=== PATIENT | male | born 1985 | race Caucasian/White ===

== ENCOUNTER 2025-02-03 21:52 | Emergency (ER) | payer MEDICAID ==
[~2025-02-03] VITALS: Ht 182.9 cm; Wt 91.5 kg
[2025-02-03 22:07] VITALS: BP 131/89; PULSE 76; RESP 16; O2SAT 98
--- NOTE | 2025-02-04 00:02 | RADIOLOGY REPORT ---
Clinical History head trauma Comparison None Technique: All CT scans at this medical facility are performed using dose modulation techniques as appropriate t o a performed exam including the following: Automated exposure control was utilized; adjustment of th e mA and/or kV according to patient size; and use of iterative reconstruction technique. All CT studies are reported to the Dose Index Registry of the [employer]. Without Contrast Radiation Dose: CTDI (mGy): 58.40; DLP (mGy-cm): 1072.52 RIC NAJERA, [id number] Findings: No focal parenchymal lesion.No mass-effect. No shift of midline structures. The ventricular system a nd extracerebral CSF spaces are unremarkable for patient's age. No acute orbital abnormality. The imaged part of the paranasal sinuses is unremarkable.The imaged par t of the mastoid air cells is unremarkable. The calvarium is unremarkable. The soft tissues are unremarkable. Impression: No evidence of acute intracranial abnormality. This report was electronically signed by Skye Landis MD on 02/03/2025 11:58:40 PM.
--- NOTE | 2025-02-04 00:04 | RADIOLOGY REPORT ---
Clinical History head trauma Comparison None Technique: All CT scans at this medical facility are performed using dose modulation techniques as appropriate t o a performed exam including the following: Automated exposure control was utilized; adjustment of th e mA and/or kV according to patient size; and use of iterative reconstruction technique. All CT studies are reported to the Dose Index Registry of the [employer]. Without Contrast Radiation Dose: CTDI (mGy): 17.49; DLP (mGy-cm): 388.73 RIC NAJERA, [id number] FINDINGS: Cervical vertebral body height is maintained. Reversed lordosis. The craniocervical junction is wit hin normal limits. No fractures or destructive osseous lesions are identified. The alignment of the facets is maintained . No significant facet joint hypertrophy. Degenerative changes of cervical spines with marginal oste ophytosis. Minimal multilevel degenerative disc disease. The spinal canal is patent. No significant neuroforami nal stenosis. No prevertebral soft tissue swelling is identified. Soft tissue planes of the neck are unremarkable. Multiple bilateral predominantly subcentimeter cerv ical lymph nodes are detected with no significant cervical lymphadenopathy. The upper portions of the chest including lungs and mediastinum appear unremarkable. IMPRESSION: Reversed lordosis of cervical spines with marginal osteophytosis indicating muscle strain. Otherwise, no evidence of acute cervical spine osseous traumatic injury. This report was electronically signed by Skye Landis MD on 02/04/2025 12:00:36 AM.
--- NOTE | 2025-02-04 00:17 | Physician Documentation ---
History of Present Illness ~ Chief Complaint: Mechanical Fall Stated Complaint: HEADACHE/FALL Time Seen by MD: 22:27 HPI Patient is seen today with complaints of headache. Patient states he fell while hiking from ground level and hit his head a little bit in his unsure whether or not he lost consciousness. Patient states he was sober at that time. Patient states this happened about three or so weeks ago. Patient states realistically he is currently homeless and does not have any money for Tylenol or ibuprofen. Patient denies any chest pain or shortness of breath or abdominal pain or nausea, vomiting, diarrhea or vertigo or dizziness. Tetanus within 5 Years?: No Medication Reconciliation Allergies: Coded Allergies: No Known Allergies (Unverified , 07/12/14) Physical Exam Vital Signs: Temperature: 97.8, Heart Rate: 76, Respiratory Rate: 16, BP: 131/89, Pulse Oximetry: 98, Weight: 91.500 Oxygen Flow Rate: 0 Progress Results/Orders Results/Orders Orders - MARLO VO PAC Ct Head (02/03/25 22:30) Ct Cervical Spine (02/03/25 ) Completed Orders - MARLO VO PAC Ct Head (02/03/25 22:30) Ct Cervical Spine (02/03/25 ) Vital Signs 02/03/25 22:07 Temp 97.8 Pulse 76 Resp 16 B/P (MAP) 131/89 Pulse Ox 98 O2 Flow Rate 0 EKG/XRAY/CT/US/VASC/MRI CT : Impression CAT SCAN Patient: RIC NAJERA Medical Record: [id number] [facility] : 1985, Age: 39 Sex: Male Location: ER Patient Status: REG ER Service Date/Time: 02/03/25/ Ordering Physician: MARLO VO PAC Exam: CT CERVICAL SPINE Clinical History head trauma Comparison None Technique: All CT scans at this medical facility are performed using dose modulation techniques as appropriate to a performed exam including the following: Automated exposure control was utilized; adjustment of the mA and/or kV according to patient size; and use of iterative reconstruction technique. All CT studies are reported to the Dose Index Registry of the [employer]. Without Contrast Radiation Dose: CTDI (mGy): 17.49; DLP (mGy-cm): 388.73 RIC NAJERA, [id number] FINDINGS: Cervical vertebral body height is maintained. Reversed lordosis. The craniocervical junction is within normal limits. No fractures or destructive osseous lesions are identified. The alignment of the facets is maintained. No significant facet joint hypertrophy. Degenerative changes of cervical spines with marginal osteophytosis. Minimal multilevel degenerative disc disease. The spinal canal is patent. No significant neuroforaminal stenosis. No prevertebral soft tissue swelling is identified. Soft tissue planes of the neck are unremarkable. Multiple bilateral predominantly subcentimeter cervical lymph nodes are detected with no significant cervical lymphadenopathy. The upper portions of the chest including lungs and mediastinum appear unremarkable. IMPRESSION: Reversed lordosis of cervical spines with marginal osteophytosis indicating muscle strain. Otherwise, no evidence of acute cervical spine osseous traumatic injury. This report was electronically signed by Syke Barajas MD on 02/04/2025 12:00:36 AM. Electronically Signed by:SKYE BARAJAS MD Date & Time: 02/04/25 0004 Dictated by: SKYE BARAJAS MD Dictation date and time: 02/04/25 0004 Primary Care Provider: NO PRIMARY CARE PROVIDER cc: MARLO VO PAC ~ CAT SCAN Patient: RIC NAJERA Medical Record: [id number] [facility] : 1985, Age: 39 Sex: Male Location: ER Patient Status: REG ER Service Date/Time: 02/03/252229 Ordering Physician: MARLO VO PAC Exam: CT HEAD Clinical History head trauma Comparison None Technique: All CT scans at this medical facility are performed using dose modulation techniques as appropriate to a performed exam including the following: Automated exposure control was utilized; adjustment of the mA and/or kV according to patient size; and use of iterative reconstruction technique. All CT studies are reported to the Dose Index Registry of the [employer]. Without Contrast Radiation Dose: CTDI (mGy): 58.40; DLP (mGy-cm): 1072.52 KESHIARIC BHATT, [id number] Findings: No focal parenchymal lesion.No mass-effect. No shift of midline structures. The ventricular system and extracerebral CSF spaces are unremarkable for patient's age. No acute orbital abnormality. The imaged part of the paranasal sinuses is unremarkable.The imaged part of the mastoid air cells is unremarkable. The calvarium is unremarkable. The soft tissues are unremarkable. Impression: No evidence of acute intracranial abnormality. This report was electronically signed by Skye Barajas MD on 02/03/2025 11:58:40 PM. Electronically Signed by:SKYE BARAJAS MD Date & Time: 02/04/25 0002 Dictated by: SKYE BARAJAS MD Dictation date and time: 02/04/25 0002 Primary Care Provider: NO PRIMARY CARE PROVIDER cc: MARLO VO PAC ~ Medical Decision Making Findings Patient is seen today with complaints of headache. Patient states he fell while hiking from ground level and hit his head a little bit in his unsure whether or not he lost consciousness. Patient states he was sober at that time. Patient states this happened about three or so weeks ago. Patient states realistically he is currently homeless and does not have any money for Tylenol or ibuprofen. Patient denies any chest pain or shortness of breath or abdominal pain or nausea, vomiting, diarrhea or vertigo or dizziness. Patient was given dose of ibuprofen 800 mg by mouth and Tylenol 975 mg by mouth in the ED tonight. Prescriptions of Tylenol and ibuprofen sent to patient's pharmacy to be taken as directed. Patient will follow up with primary care in 2-5 days if no better as needed sooner. Return to ED with any worsening, concerning or changing symptoms. Shared decision-making utilized with the patient today. CT scan of head and neck show no acute abnormality. Departure Disposition: HOME / SELF CARE / HOMELESS Impression: Primary Impression: Headache Qualified Codes: G44.209 - Tension-type headache, unspecified, not intractable Additional Impression: Fall Qualified Codes: W19.XXXA - Unspecified fall, initial encounter Condition: Improved Discharge Instructions: Tension Headache, Adult, [id number] Additional Instructions: Patient was given dose of ibuprofen 800 mg by mouth and Tylenol 975 mg by mouth in the ED tonight. Prescriptions of Tylenol and ibuprofen sent to patient's pharmacy to be taken as directed. Patient will follow up with primary care in 2-5 days if no better as needed sooner. Return to ED with any worsening, concerning or changing symptoms. Shared decision-making utilized with the patient today. CT scan of head and neck show no acute abnormality. Referrals: NO PRIMARY CARE PROVIDER (PCP) Prescriptions Acetaminophen (Tylenol Extra Strength) 500 Mg Tablet 2 TAB PO Q6H PRN PRN for pain or fever for 7 Days, #56 TAB Prov: MARLO VO 02/04/25 Ibuprofen (Ibuprofen) 800 Mg Tablet 1 TAB PO Q8H for pain for 10 Days, #30 TAB 0 Refills Prov: MARLO VO 02/04/25 Signature Scribe Signature: No scribe Attestation: No scribe MARLO VO February 04, 2025 00:17
[2025-02-04] MEDS ORDERED: IBUP-1986 PO (00:19)
[2025-02-04] MEDS ORDERED: ACET-1025 PO (00:19)
[2025-02-04 00:21] VITALS: TEMP 97.8
[2025-02-04] MEDS: ibuprofen tablet 400 MG TABLET PO STA (00:30)
[2025-02-04] MEDS: acetaminophen 325mg tablet PO STA (00:32)
== END 2025-02-04 00:33 | disposition home or self-care (01) ==
LOC: ER 21:53
DX: R51.9 Headache, unspecified (principal); Z59.00 Homelessness unspecified; W18.39XA Other fall on same level, initial encounter; Y93.89 Activity, other specified; Y92.89 Other specified places as the place of occurrence of the external cause; Y99.8 Other external cause status
CPT/HCPCS: 70450; 72125; 99284